=== PATIENT | male | born 1945 | race Caucasian/White ===

== ENCOUNTER 2020-05-10 23:32 | Emergency (ER) | payer OTHER ==
[~2020-05-10] VITALS: Ht 188 cm; Wt 81.7 kg
[2020-05-11 00:21] LABS: BASOPHILS ABSOLUTE AUTO 0.01 K/mm3 (0.00-0.23); BASOPHILS PERCENT AUTO 0 % (0-2); EOSINOPHILS ABSOLUTE AUTO 0.07 K/mm3 (0.00-0.68); EOSINOPHILS PERCENT AUTO 1 % (0-6); Hematocrit 45.9 % (37.0-53.0); Hemoglobin 15.1 g/dL (13.5-17.5); IMMATURE GRAN ABSOLUTE AUTO 0.03 K/mm3 (0.00-0.10); IMMATURE GRAN PERCENT AUTO 0 % (0-1); LYMPHOCYTES ABSOLUTE AUTO 1.47 K/mm3 (0.84-5.20); LYMPHOCYTES PERCENT AUTO 18 % (21-46); MONOCYTES ABSOLUTE AUTO 0.39 K/mm3 (0.16-1.47); MONOCYTES PERCENT AUTO 5 % (4-13); Mean Corpuscular HGB 31.7 pg (26.0-34.0); Mean Corpuscular HGB Conc 32.9 g/dL (31.5-36.5); Mean Corpuscular Volume 96 fL (80-100); Mean Platelet Volume 8.8 fL (9.1-12.4); NEUTROPHILS ABSOLUTE AUTO 6.13 K/mm3 (1.96-9.15); NEUTROPHILS PERCENT AUTO 76 % (41-73); Platelet Count 224 K/mm3 (150-400); Red Blood Cell Count 4.76 M/mm3 (4.30-5.90)
[2020-05-11 00:46] LABS: Alanine Aminotransfer (ALT/SGP 38 U/L (12-78); Albumin, Blood 3.7 g/dL (3.4-5.0); Albumin/Globulin Ratio 0.9 (0.8-1.8); Alk Phos 48 U/L (50-136); Anion Gap 5 mmol/L (6-16); Aspartate Aminotrans (AST/SGOT 60 U/L (12-37); Bilirubin, Total 0.6 mg/dL (0.1-1.0); Blood Urea Nitrogen 10 mg/dL (8-24); Bun/Creatinine Ratio 8.5 (12.0-20.0); CO2, Blood 29 mmol/L (21-32); Calcium, Blood 9.3 mg/dL (8.5-10.1); Chloride, Blood 107 mmol/L (98-108); Creatinine, Blood 1.18 mg/dL (0.60-1.20); Globulin, Blood 4.2 g/dL (2.2-4.0); Glomerular Filtration Rate >60 (60-); Glucose, Blood 138 mg/dL (70-99); Potassium, Blood 3.9 mmol/L (3.5-5.5); Sodium, Blood 141 mmol/L (136-145); Total Protein, Blood 7.9 g/dL (6.4-8.2)
== END 2020-05-11 05:05 | disposition home or self-care (01) ==
LOC: ER 23:32
PROVIDERS: Emergency Medicine
DX: R10.11 Right upper quadrant pain (principal)
CPT/HCPCS: 36415; 74177; 76705; 80053; 83690; 85025; 99284-25; Q9967

== ENCOUNTER 2020-10-26 23:28 | Emergency (ER) | payer OTHER ==
[~2020-10-26] VITALS: Ht 188 cm; Wt 72.6 kg
[2020-10-27 01:18] LABS: BASOPHILS ABSOLUTE AUTO 0.02 K/mm3 (0.00-0.23); BASOPHILS PERCENT AUTO 0 % (0-2); EOSINOPHILS ABSOLUTE AUTO 0.06 K/mm3 (0.00-0.68); EOSINOPHILS PERCENT AUTO 1 % (0-6); Hematocrit 36.9 % (37.0-53.0); IMMATURE GRAN ABSOLUTE AUTO 0.03 K/mm3 (0.00-0.10); IMMATURE GRAN PERCENT AUTO 0 % (0-1); LYMPHOCYTES ABSOLUTE AUTO 0.79 K/mm3 (0.84-5.20); LYMPHOCYTES PERCENT AUTO 9 % (21-46); MONOCYTES ABSOLUTE AUTO 0.82 K/mm3 (0.16-1.47); MONOCYTES PERCENT AUTO 9 % (4-13); Mean Corpuscular HGB 28.8 pg (26.0-34.0); Mean Corpuscular HGB Conc 32.5 g/dL (31.5-36.5); Mean Corpuscular Volume 89 fL (80-100); NEUTROPHILS ABSOLUTE AUTO 7.12 K/mm3 (1.96-9.15); NEUTROPHILS PERCENT AUTO 81 % (41-73); Platelet Count 382 K/mm3 (150-400); RDW Coefficient Variation 11.9 % (11.7-14.2); RDW Standard Deviation 37.9 fL (35.1-46.3); Red Blood Cell Count 4.16 M/mm3 (4.30-5.90); White Blood Cell Count 8.84 K/mm3 (4.00-11.30)
[2020-10-27 01:36] LABS: Alanine Aminotransfer (ALT/SGP 14 U/L (12-78); Albumin, Blood 2.4 g/dL (3.4-5.0); Albumin/Globulin Ratio 0.4 (0.8-1.8); Alk Phos 34 U/L (50-136); Anion Gap 8 mmol/L (6-16); Aspartate Aminotrans (AST/SGOT 17 U/L (12-37); Bilirubin, Total 0.6 mg/dL (0.1-1.0); Blood Urea Nitrogen 13 mg/dL (8-24); Bun/Creatinine Ratio 14.2 (12.0-20.0); CO2, Blood 27 mmol/L (21-32); Chloride, Blood 99 mmol/L (98-108); Creatinine, Blood 0.92 mg/dL (0.60-1.20); Globulin, Blood 5.9 g/dL (2.2-4.0); Glomerular Filtration Rate >60 (60-); Glucose, Blood 153 mg/dL (70-99); Potassium, Blood 3.9 mmol/L (3.5-5.5); Sodium, Blood 134 mmol/L (136-145); Total Protein, Blood 8.3 g/dL (6.4-8.2)
[2020-10-27] MEDS ORDERED: Miralax17 GM PO (02:48)
[2020-10-27] MEDS ORDERED: Fleet Enema132 ML PR (02:48)
[2020-12-02] MEDS ORDERED: ATOR40TA PO (15:11)
[2020-12-02] MEDS ORDERED: Norco 5-325 Ta1 EACH PO (18:15)
[2020-12-02] MEDS ORDERED: LIDO700A20 TOP (18:15)
[2020-12-05] MEDS ORDERED: GABA400 PO (10:19)
[2020-12-05] MEDS ORDERED: GABA100 PO (10:19)
[2020-12-05] MEDS ORDERED: Budeprion Xl300 MG PO (10:21)
[2020-12-05] MEDS ORDERED: TAMS.4ER PO (10:21)
[2020-12-05] MEDS ORDERED: TRAZ100 PO (10:21)
[2020-12-05] MEDS ORDERED: CHOLECALCIFEROL (10:23)
== END 2020-10-27 03:22 | disposition home or self-care (01) ==
LOC: ER 23:28
PROVIDERS: Emergency Medicine
DX: K59.00 Constipation, unspecified (principal); E03.9 Hypothyroidism, unspecified; E78.00 Pure hypercholesterolemia, unspecified
CPT/HCPCS: 36415; 74177; 80053; 83605; 85025; 96374; 99284-25; J2405; Q9967

== ENCOUNTER 2020-11-12 15:50 | Emergency (ER) | payer OTHER ==
[~2020-11-12] VITALS: Ht 188 cm; Wt 70.3 kg
[~2020-11-12 15:50] MED LIST: Fleet Enema132 ML PR; Miralax17 GM PO
[2020-11-12] MEDS ORDERED: TAMSULOSIN HCL0.4 MG PO (16:07)
[2020-11-12] MEDS ORDERED: GABA100 PO (16:07)
[2020-11-12] MEDS ORDERED: TRAZ100 PO (16:08)
[2020-11-12 16:49] LABS: BASOPHILS ABSOLUTE AUTO 0.03 K/mm3 (0.00-0.23); BASOPHILS PERCENT AUTO 0 % (0-2); EOSINOPHILS ABSOLUTE AUTO 0.01 K/mm3 (0.00-0.68); EOSINOPHILS PERCENT AUTO 0 % (0-6); Hematocrit 31.4 % (37.0-53.0); Hemoglobin 9.9 g/dL (13.5-17.5); IMMATURE GRAN ABSOLUTE AUTO 0.06 K/mm3 (0.00-0.10); IMMATURE GRAN PERCENT AUTO 1 % (0-1); LYMPHOCYTES ABSOLUTE AUTO 0.74 K/mm3 (0.84-5.20); LYMPHOCYTES PERCENT AUTO 7 % (21-46); MONOCYTES ABSOLUTE AUTO 0.59 K/mm3 (0.16-1.47); MONOCYTES PERCENT AUTO 6 % (4-13); Mean Corpuscular HGB 27.9 pg (26.0-34.0); Mean Corpuscular HGB Conc 31.5 g/dL (31.5-36.5); Mean Corpuscular Volume 89 fL (80-100); Mean Platelet Volume 8.6 fL (9.1-12.4); NEUTROPHILS ABSOLUTE AUTO 8.61 K/mm3 (1.96-9.15); NEUTROPHILS PERCENT AUTO 86 % (41-73); Platelet Count 436 K/mm3 (150-400); RDW Coefficient Variation 12.9 % (11.7-14.2); RDW Standard Deviation 42.2 fL (35.1-46.3); Red Blood Cell Count 3.55 M/mm3 (4.30-5.90); White Blood Cell Count 10.04 K/mm3 (4.00-11.30)
[2020-11-12 17:00] LABS: Anion Gap 9 mmol/L (6-16); Blood Urea Nitrogen 16 mg/dL (8-24); Bun/Creatinine Ratio 16.9 (12.0-20.0); CO2, Blood 22 mmol/L (21-32); Calcium, Blood 8.9 mg/dL (8.5-10.1); Chloride, Blood 102 mmol/L (98-108); Creatinine, Blood 0.95 mg/dL (0.60-1.20); Glomerular Filtration Rate >60 (60-); Glucose, Blood 229 mg/dL (70-99); Potassium, Blood 3.5 mmol/L (3.5-5.5); Sodium, Blood 133 mmol/L (136-145)
[2020-11-12 20:24] LABS: Influenza A, PCR NEGATIVE (NEGATIVE); Influenza B, PCR NEGATIVE (NEGATIVE); Resp Syncytial Virus, PCR NEGATIVE (NEGATIVE); SARS-Cov-2 (COVID-19) PCR, MMC NEGATIVE (NEGATIVE)
== END 2020-11-12 19:56 | disposition home or self-care (01) ==
LOC: ER 15:50
PROVIDERS: Student in an Organized Health Care Education/Training Program
DX: J90 Pleural effusion, not elsewhere classified (principal); E03.9 Hypothyroidism, unspecified; E78.00 Pure hypercholesterolemia, unspecified; N40.0 Benign prostatic hyperplasia without lower urinary tract symptoms; Z20.822 Contact with and (suspected) exposure to COVID-19; Z87.891 Personal history of nicotine dependence
CPT/HCPCS: 0241U; 71046; 80048; 85025; 93005; 93010; 99284-25

== ENCOUNTER 2020-12-10 19:19 | Emergency (ER) | payer OTHER ==
[~2020-12-10] VITALS: Ht 188 cm; Wt 67.6 kg
[~2020-12-10 19:19] MED LIST changes: +ATOR40TA PO; +Budeprion Xl300 MG PO; +CHOLECALCIFEROL; +GABA100 PO; +GABA400 PO; +LIDO700A20 TOP; +Norco 5-325 Ta1 EACH PO; +TAMS.4ER PO; +TAMSULOSIN HCL0.4 MG PO; +TRAZ100 PO
[2020-12-10 20:12] LABS: BASOPHILS ABSOLUTE AUTO 0.03 K/mm3 (0.00-0.23); BASOPHILS PERCENT AUTO 0 % (0-2); EOSINOPHILS ABSOLUTE AUTO 0.02 K/mm3 (0.00-0.68); EOSINOPHILS PERCENT AUTO 0 % (0-6); Hematocrit 33.3 % (37.0-53.0); Hemoglobin 10.3 g/dL (13.5-17.5); IMMATURE GRAN ABSOLUTE AUTO 0.02 K/mm3 (0.00-0.10); IMMATURE GRAN PERCENT AUTO 0 % (0-1); LYMPHOCYTES ABSOLUTE AUTO 0.78 K/mm3 (0.84-5.20); LYMPHOCYTES PERCENT AUTO 10 % (21-46); MONOCYTES ABSOLUTE AUTO 0.59 K/mm3 (0.16-1.47); MONOCYTES PERCENT AUTO 7 % (4-13); Mean Corpuscular HGB Conc 30.9 g/dL (31.5-36.5); Mean Corpuscular Volume 87 fL (80-100); Mean Platelet Volume 8.1 fL (9.1-12.4); NEUTROPHILS ABSOLUTE AUTO 6.54 K/mm3 (1.96-9.15); NEUTROPHILS PERCENT AUTO 82 % (41-73); Platelet Count 291 K/mm3 (150-400); RDW Coefficient Variation 13.7 % (11.7-14.2); RDW Standard Deviation 43.7 fL (35.1-46.3); Red Blood Cell Count 3.82 M/mm3 (4.30-5.90); White Blood Cell Count 7.98 K/mm3 (4.00-11.30)
[2020-12-10 20:24] LABS: Alanine Aminotransfer (ALT/SGP 11 U/L (12-78); Albumin, Blood 2.2 g/dL (3.4-5.0); Albumin/Globulin Ratio 0.4 (0.8-1.8); Alk Phos 34 U/L (50-136); Anion Gap 6 mmol/L (6-16); Aspartate Aminotrans (AST/SGOT 12 U/L (12-37); Bilirubin, Total 0.4 mg/dL (0.1-1.0); Blood Urea Nitrogen 13 mg/dL (8-24); Bun/Creatinine Ratio 12.7 (12.0-20.0); CO2, Blood 26 mmol/L (21-32); Calcium, Blood 8.9 mg/dL (8.5-10.1); Chloride, Blood 105 mmol/L (98-108); Creatinine, Blood 1.02 mg/dL (0.60-1.20); Globulin, Blood 5.5 g/dL (2.2-4.0); Glomerular Filtration Rate >60 (60-); Glucose, Blood 117 mg/dL (70-99); Potassium, Blood 3.9 mmol/L (3.5-5.5); Sodium, Blood 137 mmol/L (136-145); Total Protein, Blood 7.7 g/dL (6.4-8.2)
== END 2020-12-10 21:05 | disposition home or self-care (01) ==
LOC: ER 19:19
PROVIDERS: Emergency Medicine
DX: K59.00 Constipation, unspecified (principal); E03.9 Hypothyroidism, unspecified; E78.5 Hyperlipidemia, unspecified; Z87.891 Personal history of nicotine dependence
CPT/HCPCS: 80053; 85025; 99283

== ENCOUNTER 2020-12-16 11:55 | Emergency (ER) | payer OTHER ==
[~2020-12-16] VITALS: Ht 177.8 cm; Wt 66.7 kg
[2020-12-16 15:32] LABS: SARS-Cov-2 (COVID-19) PCR, MMC NEGATIVE (NEGATIVE)
== END 2020-12-16 17:35 | disposition home or self-care (01) ==
LOC: ER 11:55
PROVIDERS: Emergency Medicine
DX: J90 Pleural effusion, not elsewhere classified (principal); Z98.890 Other specified postprocedural states; Z20.822 Contact with and (suspected) exposure to COVID-19; Z79.899 Other long term (current) drug therapy; Z87.891 Personal history of nicotine dependence
CPT/HCPCS: 32555; 71045; 99285-25; U0004

== ENCOUNTER 2020-12-20 21:51 | Emergency (ER) | payer OTHER ==
[~2020-12-20] VITALS: Ht 188 cm; Wt 66.7 kg
== END 2020-12-21 02:06 | disposition home or self-care (01) ==
LOC: ER 21:51
DX: K59.00 Constipation, unspecified (principal); E03.9 Hypothyroidism, unspecified; E78.5 Hyperlipidemia, unspecified; Z87.891 Personal history of nicotine dependence; Z79.899 Other long term (current) drug therapy
CPT/HCPCS: 74018; 99283-25

== ENCOUNTER 2020-12-27 06:27 | Emergency (ER) | payer OTHER ==
[~2020-12-27] VITALS: Ht 188 cm; Wt 65.8 kg
[2020-12-27] MEDS ORDERED: BISA5EC PO (09:44)
[2020-12-27] MEDS ORDERED: ADULT GLYCERIN1 EACH PR (09:44)
== END 2020-12-27 09:58 | disposition home or self-care (01) ==
LOC: ER 06:27
DX: K59.00 Constipation, unspecified (principal); Z79.899 Other long term (current) drug therapy; Z87.891 Personal history of nicotine dependence
CPT/HCPCS: 82272; 99284; A9270

== ENCOUNTER 2020-12-31 11:47 | Emergency (ER) | payer OTHER ==
[~2020-12-31] VITALS: Ht 188 cm; Wt 65.8 kg
[~2020-12-31 11:47] MED LIST changes: +ADULT GLYCERIN1 EACH PR; +BISA5EC PO
[2020-12-31] MEDS ORDERED: ATOR40TA PO (12:06)
[2020-12-31] MEDS ORDERED: THERA-D2000 UNIT PO (12:07)
[2020-12-31 12:22] LABS: BASOPHILS ABSOLUTE AUTO 0.03 K/mm3 (0.00-0.23); BASOPHILS PERCENT AUTO 0 % (0-2); EOSINOPHILS ABSOLUTE AUTO 0.04 K/mm3 (0.00-0.68); EOSINOPHILS PERCENT AUTO 1 % (0-6); Hematocrit 34.9 % (37.0-53.0); Hemoglobin 10.7 g/dL (13.5-17.5); IMMATURE GRAN ABSOLUTE AUTO 0.02 K/mm3 (0.00-0.10); IMMATURE GRAN PERCENT AUTO 0 % (0-1); LYMPHOCYTES ABSOLUTE AUTO 1.38 K/mm3 (0.84-5.20); LYMPHOCYTES PERCENT AUTO 20 % (21-46); MONOCYTES ABSOLUTE AUTO 0.57 K/mm3 (0.16-1.47); MONOCYTES PERCENT AUTO 8 % (4-13); Mean Corpuscular HGB 25.7 pg (26.0-34.0); Mean Corpuscular HGB Conc 30.7 g/dL (31.5-36.5); Mean Corpuscular Volume 84 fL (80-100); NEUTROPHILS ABSOLUTE AUTO 4.76 K/mm3 (1.96-9.15); NEUTROPHILS PERCENT AUTO 70 % (41-73); Platelet Count 315 K/mm3 (150-400); RDW Coefficient Variation 14.2 % (11.7-14.2); RDW Standard Deviation 43.3 fL (35.1-46.3); Red Blood Cell Count 4.16 M/mm3 (4.30-5.90)
[2020-12-31 12:41] LABS: Alanine Aminotransfer (ALT/SGP 11 U/L (12-78); Albumin/Globulin Ratio 0.3 (0.8-1.8); Alk Phos 35 U/L (50-136); Anion Gap 5 mmol/L (6-16); Aspartate Aminotrans (AST/SGOT 16 U/L (12-37); Bilirubin, Total 0.3 mg/dL (0.1-1.0); Blood Urea Nitrogen 14 mg/dL (8-24); Bun/Creatinine Ratio 16.2 (12.0-20.0); CO2, Blood 28 mmol/L (21-32); Calcium, Blood 8.8 mg/dL (8.5-10.1); Chloride, Blood 99 mmol/L (98-108); Creatinine, Blood 0.86 mg/dL (0.60-1.20); Globulin, Blood 5.9 g/dL (2.2-4.0); Glomerular Filtration Rate >60 (60-); Glucose, Blood 94 mg/dL (70-99); Potassium, Blood 4.3 mmol/L (3.5-5.5); Sodium, Blood 132 mmol/L (136-145); Total Protein, Blood 7.9 g/dL (6.4-8.2)
== END 2020-12-31 15:53 | disposition home or self-care (01) ==
LOC: ER 11:47
PROVIDERS: Emergency Medicine
DX: K59.00 Constipation, unspecified (principal); Z79.899 Other long term (current) drug therapy
CPT/HCPCS: 36415; 74177; 80053; 83690; 85025; 93005; 93010; 99285-25; Q9967

== ENCOUNTER 2021-01-02 19:46 | Emergency (ER) | payer OTHER ==
[~2021-01-02] VITALS: Ht 188 cm; Wt 64.0 kg
[~2021-01-02 19:46] MED LIST changes: +THERA-D2000 UNIT PO
[2021-01-02] MEDS ORDERED: MAGCIT300 PO (22:30)
== END 2021-01-02 22:45 | disposition home or self-care (01) ==
LOC: ER 19:46
DX: K59.00 Constipation, unspecified (principal); E03.9 Hypothyroidism, unspecified; E78.5 Hyperlipidemia, unspecified; Z87.891 Personal history of nicotine dependence; Z79.899 Other long term (current) drug therapy
CPT/HCPCS: 99283; A9270

== ENCOUNTER 2021-01-04 02:31 | Emergency (ER) | payer OTHER ==
[~2021-01-04] VITALS: Ht 175.3 cm; Wt 68.0 kg
[~2021-01-04 02:31] MED LIST changes: +MAGCIT300 PO
== END 2021-01-04 05:25 | disposition home or self-care (01) ==
LOC: ER 02:31
DX: K59.00 Constipation, unspecified (principal); E03.9 Hypothyroidism, unspecified; E78.5 Hyperlipidemia, unspecified; Z87.891 Personal history of nicotine dependence
CPT/HCPCS: 99283; A9270

== ENCOUNTER 2021-01-04 22:13 | Emergency (ER) | payer OTHER ==
[~2021-01-04] VITALS: Ht 188 cm; Wt 63.5 kg
[2021-01-06] MEDS ORDERED: CEFP200 PO (16:44)
== END 2021-01-05 | disposition home or self-care (01) ==
LOC: ER 22:13
DX: K59.00 Constipation, unspecified (principal); K58.9 Irritable bowel syndrome, unspecified; K62.89 Other specified diseases of anus and rectum; E03.9 Hypothyroidism, unspecified; E78.5 Hyperlipidemia, unspecified; Z79.899 Other long term (current) drug therapy; Z87.891 Personal history of nicotine dependence
CPT/HCPCS: 99283; A9270

== ENCOUNTER 2021-01-06 14:46 | Emergency (ER) | payer OTHER ==
[~2021-01-06] VITALS: Ht 172.7 cm; Wt 61.2 kg
--- NOTE | 2021-01-06 16:31 | NUR ---
[facility] INITIAL VISIT to ER #15 when referral received. Pt [facility] and [facility] for const[facility], pain, anxiety in recent weeks. Measures employed have been disimpaction, suppository, laxatives, enema with results of very soft stool extracted. Pt could not tolerate further attempts at disimpaction on most recent ER visit. Pt has PMH of mesothelioma and has had two thoracentesis in November, possibly additional tx at [facility]. Pt also has PTSD, BPH and chronic severe pain. Pt appears frail and malnutritioned. Listed height and weight is 5' 8" and 135 pounds. He reports extremely poor appetite and minimal PO intake of food and fluids due to pain and constipation. He has not had nausea or vomitting. Pt reports he is starting tx for mesothelioma with Dr Paulino and reports being given a 50% chance of "successful tx". He is unclear if that means cure or extention/improvement of quality of life. I spoke to him about hospice briefly, LTC at [facility] for support and improved tx of s/s, HH services. He is agreeable to HH RN, [facility] and [employer] for some longer term care planning and learning how to manage bowels and pain, especially while undergoing cancer tx infusions. Pt doesn't feel he is ready to leave his home but has spoken to the [facility] re: longer term placement "when it is time". He lives alone in his home in [place]. He says he can get to the BR, Kitchen and bedroom independently. He has fence installer helper to clean periodically and someone to shop for him. He says right now, "home is a disaster". I encouraged Pt to speak with his primary care provider at the [facility] and Dr Paulino about his current s/s and problems causing frequent ER/UC visits and to ask about prognosis in relation to his current malnutrition and frailty. I plan to contact Nakia MALDONADO at [facility] tomorrow to report on my visit and update their office on pt's current s/s and home management deficits. Report on my visit given to ER Mechanical Maintenance Worker, who will see pt also and discuss HH with him. was present during most of my visit and aware of recommendations/conversation with pt re: ST and LT care plans. Pt is still very distressed about constipation. awaiting results of studies done. Pt's urine showed UTI but lab work did not indicate sepsis. Pt will be given PO antibiotics for UTI. [facility] and have a [facility] to relieve his constipation. Both and I reviewed tx for constipation options that did not include surgery. We will request any available POLST or AD on file at the [facility]. None found in our EMR. Pt indicates he plans to cont. seeking tx and "trying not to before cancer kills him".
[2021-01-06] MEDS ORDERED: CEFP200 PO (16:44)
--- NOTE | 2021-01-08 09:28 | NUR ---
[facility] follow up note - PLEASE see Advanced Directive in EMR. Pt has indicated he does not want prolongation of life, feeding tube or agressive life saving measures if he is suffering from any of the scenarios or conditions listed in his advanced directive, completed at the [facility] in 2019. Pt lists his friend, Fred Kemp, as his surrogate medical decision maker (MPOA). His number is [phone]. TC to Nakia San MA @ [facility] oncology/Dr Paulino's office to report on my visit with pt in ER. We had received his [facility] Advanced directive upon request from the [place]. I faxed this and my PN to Nakia this am. Nakia states pt was able to start immunosuppresive infusions yesterday and also that pt will not be receiving chemotherapy as part of his tx plan. The two immunosuppressive therapy agents he is going to be receiving will be easier for pt to tolerate, per Nakia. Pt had a truck driver for his appointment yesterday. He had stated to me that had help with driving to appointments and grocery shoping and had help desk intern for cleaning periodically. Pt stated he had resources to hire a little more help if needed but not for daily caregiving. Pt's newly acquired AD sent to medical records for scanning into his EMR.
== END 2021-01-06 17:46 | disposition home or self-care (01) ==
LOC: ER 14:46
DX: K59.00 Constipation, unspecified (principal); N39.0 Urinary tract infection, site not specified; E03.9 Hypothyroidism, unspecified; E78.5 Hyperlipidemia, unspecified; Z79.899 Other long term (current) drug therapy; Z87.891 Personal history of nicotine dependence
CPT/HCPCS: 99284; A9270

== ENCOUNTER 2021-01-12 05:26 | Emergency (ER) | payer OTHER, MEDICARE ==
[~2021-01-12] VITALS: Ht 188 cm; Wt 63.5 kg
[~2021-01-12 05:26] MED LIST changes: +CEFP200 PO
[2021-01-12] MEDS ORDERED: HYDCOR2.5C PR (07:12)
== END 2021-01-12 07:56 | disposition home or self-care (01) ==
LOC: ER 05:26
DX: K62.89 Other specified diseases of anus and rectum (principal); K59.00 Constipation, unspecified; E03.9 Hypothyroidism, unspecified; E78.5 Hyperlipidemia, unspecified; Z87.891 Personal history of nicotine dependence; Z79.899 Other long term (current) drug therapy
CPT/HCPCS: 74018; 93005; 93010; 99283-25; A9270